=== PATIENT | male | born 1980 | race Caucasian/White ===

== ENCOUNTER 2017-04-12 15:05 | Emergency (ER) | payer BC, OTHER ==
--- NOTE | 2017-04-12 15:21 | Emergency Department Record ---
History of Present Illness - General Chief Complaint: Chest Pain Stated Complaint: CHEST PAIN Time Seen by Provider: 04/12/17 15:18 Source: Patient Mode of Arrival: Wheelchair Limitations: No limitations - History of Present Illness Initial Comments: 36 yo male presents with left sided chest pain. The patient states he has had pain everyday for about 2 years. The pain comes and goes several times a day. He states it occurs when leaning forward and relief if leaning back. Certain position changes also cause the pain like reaching. No shortness of breath. he denies any pain with walking. No sweating or nausea. He called his PCP to discuss the ongoing symptoms and states his appointment was made for July. He is a fuel oil truck driver now and states he wants to get it checked out since over the last 2 years it has not gone away. He wanted to make sure it was not an issue with his job. No calf pain or swelling. His PCP is Dr Espitia in [place] Complaint: Chest pain Onset/Timin -: Year(s) Pain Location: Left chest Pain Radiation: None Severity: Mild Severity scale (1-10): 1 Quality: Tightness Consistency: Intermittent Improves With: Nothing Worsens With: Movement Context: Recent travel [place] Symptoms: Vomiting Treatments Prior to Arrival: None - Related Data Home Medications Medication Instructions Recorded Confirmed Last Taken No Home Med [NO HOME MEDS] 04/12/17 04/12/17 Unknown Allergies Allergy/AdvReac Type Severity Reaction Status Date / Time No Known Drug Allergies Allergy Verified 04/12/17 15:06 Travel Screening - Travel/Exposure Within Last 30 Days Have you traveled within the last 30 days?: Yes Location Detail:: [place] [employer] - Additonal Travel Details Have you been exposed to anyone with a communicable illness?: No - Travel Symptoms Symptom Screening: None Review of Systems Constitutional: Denies: Chills, Fever, Malaise, Weakness Eyes: Denies: Eye discharge, Eye pain, Photophobia, Vision change ENT: Denies: Congestion, Throat pain Respiratory: Denies: Cough, Dyspnea, Hemoptysis, Stridor, Wheezes Cardiovascular: Reports: Chest pain (pain with moving and changing certain positions). Denies: Dyspnea on exertion, Edema, Orthopnea, Palpitations, Syncope Endocrine: Denies: Fatigue Gastrointestinal: Denies: Abdominal pain, Diarrhea, Nausea, Vomiting Genitourinary: Denies: Discharge, Dysuria, Frequency Musculoskeletal: Denies: Back pain, Gout, Joint swelling Skin: Denies: Bruising, Change in color, Rash Neurological: Denies: Headache, Numbness, Weakness Psychiatric: Denies: Anxiety Hematological/Lymphatic: Denies: Blood Clots, Easy bleeding, Easy bruising, Swollen glands Past Medical History - SOCIAL HISTORY Smoking Status: Never smoker - RESPIRATORY Hx Respiratory Disorders: Yes Hx Asthma: Yes - CARDIOVASCULAR Hx Cardio Disorders: No - NEURO Hx Neuro Disorders: No - GI Hx GI Disorders: No - Hx Genitourinary Disorders: No - ENDOCRINE Hx Endocrine Disorders: No - MUSCULOSKELETAL Hx Musculoskeletal Disorders: No - PSYCH Hx Psych Problems: Yes Hx Anxiety: Yes Hx Depression: Yes - HEMATOLOGY/ONCOLOGY Hx Hematology/Oncology Disorders: No Physical Exam - General General Appearance: Alert, Oriented x3, Cooperative, No acute distress Limitations: No limitations - Head Head exam: Atraumatic, Normal inspection - Eye Eye exam: Normal appearance. negative: Conjunctival injection, Scleral icterus - ENT ENT exam: Normal exam, Mucous membranes moist Ear exam: Normal external inspection Nasal Exam: Normal inspection Mouth exam: Normal external inspection Teeth exam: Normal inspection Throat exam: Normal inspection - Neck Neck exam: Normal inspection, Full ROM. negative: Tenderness - Respiratory Respiratory exam: Normal lung sounds bilaterally, Chest wall tenderness (hurts to sit forward and to reach across left to right). negative: Accessory muscle use, Decreased breath sounds, Prolonged expiratory, Rales, Respiratory distress , Rhonchi, Stridor, Wheezes - Cardiovascular Cardiovascular Exam: Regular rate, Normal rhythm, Normal heart sounds Peripheral Pulses: 2+: Radial (R), Radial (L) - GI/Abdominal GI/Abdominal exam: Soft. negative: Tenderness - Rectal Rectal exam: Deferred - exam: Deferred - Extremities Extremities exam: Normal inspection, Full ROM, Normal capillary refill. negative: Calf tenderness, Joint swelling, Pedal edema, Tenderness - Back Back exam: Reports: Normal inspection, Full ROM. Denies: CVA tenderness (R), CVA tenderness (L), Muscle spasm, Rash noted, Tenderness - Neurological Neurological exam: Alert, Normal gait, Oriented X3 - Psychiatric Psychiatric exam: Normal affect, Normal mood - Skin Skin exam: Dry, Intact, Normal color, Warm Course Vital Signs 04/12/17 15:09 Temperature 99.0 F Pulse Rate 80 Respiratory 18 Rate Blood Pressure 131/87 Pulse Ox 98 - Reevaluation(s) Reevaluation #1: The patient was seen for a left sided chest pain that occurs multiple times daily for the last 2 years, it occurs with position changes and reaching. 04/12/17 15:18 EKG NSR rate 78 intervals normal, NS inferior changes, No acute ST changes, No changes from the prior EKG on 12/25/14. 04/12/17 15:19 04/12/17 16:20 No acute changes on the CBC,BMP or Troponin. 04/12/17 16:22 The CXR preliminary was reviewed 04/12/17 16:33 The D-dimer is elevated CTA ordered 04/12/17 17:19 The CTA was reviewed. No central or upper lobe PE in the periphery, non noted in the lower but some limitation of the study due to contrast timing. The patient's symptoms are atypical for CAD or PE. He does not have symptoms with enough suspicion to re-CT. He does not have in any calf pain, tenderness, or swelling. I will refer him for outpatient cardiology for his chronic atypical chest pain Medical Decision Making - Lab Data Result diagrams: 04/12/17 15:30 04/12/17 15:30 Disposition Disposition: Discharge Clinical Impression: Chest wall pain, Atypical chest pain Disposition: Home, Self-Care Condition: (1) Good Instructions: Chest Pain (ED) Additional Instructions: Call your doctor again tomorrow to schedule a recheck prior to July Return if the pain increases, happens without certain movements or positions or any new concerns You are being referred to the cardiology clinic at [facility] for your chest pain Referrals: KELL TURNER D.O. [DOCTOR OF OSTEOPATH] - [facility] Specialty Clinics [Provider Group] Forms: Patient Portal Access Time of Disposition: 17:23 Quality - Quality Measures Quality Measures: N/A - Blood Pressure Screening Does Patient Have Any of the Following: No Blood Pressure Classification: Pre-Hypertensive BP Reading Systolic Measurement: 127 Diastolic Measurement: 81 Screening for High Blood Pressure: < Pre-Hypertensive BP, F/U Documented > [ [id number]] Pre-Hypertensive Follow-up Interventions: Referral to alternative/primary care provider.
[2017-04-12 15:34] LABS: BASO % 0.1 % (0-6); EOS % 2.5 % (0-6); GRAN % 67.5 % (47-80); HEMATOCRIT 45.7 % (42.0-52.0); LYMPH % 19.8 % (16-45); MEAN CELL VOLUME 88.2 fl (81-97); MEAN CORPUSCULAR HEMOGLOBIN 30.9 pg (27-33); MONO % 10.1 % (0-9); PLATELET COUNT 284 K/uL (130-400); RED BLOOD COUNT 5.18 M/uL (4.40-5.70); RED CELL DISTRIBUTION WIDTH 13.4 % (11.5-14.5); WHITE BLOOD COUNT W/O DIFF 7.2 K/uL (4.2-12.2)
[2017-04-12 16:00] LABS: BLOOD UREA NITROGEN 17 mg/dL (6-20); CREATINE PHOSPHOKINASE 99 U/L (39-308); EST GLOMERULAR FILTRATION RATE > 60 mL/min; GLUCOSE,RANDOM 115 mg/dL (74-109)
[2017-04-12 16:04] LABS: CKMB 1.6 ng/mL (<6.73)
--- NOTE | 2017-04-13 11:17 | RADIOLOGY REPORT ---
EXAM: CHEST, TWO VIEWS HISTORY: CHEST PAIN LEFT SIDED MEDIASTINUM FOR TWO YEARS. TECHNIQUE: PA and lateral views of the chest were obtained. Comparison: Two view chest 12/25/14. FINDINGS: The heart size is within normal limits. Small persistent nodule right mid lung laterally has not changed in size appreciably from the previous exam again measuring about 6 mm in size and appearing slightly more dense, likely a calcified granuloma. No definite acute infiltrate is seen. No pleural effusion or pneumothorax evident. Minor linear fibrosis or discoid atelectasis in the lung base anteriorly. IMPRESSION: 1. STABLE SMALL NODULE RIGHT MID LUNG LATERALLY IS LIKELY A CALCIFIED GRANULOMA. 2. MINOR LINEAR FIBROSIS OR DISCOID ATELECTASIS IN THE LUNG BASE ANTERIORLY. JOB NUMBER: [id number] MTDD
--- NOTE | 2017-04-13 20:27 | CT ANGIOGRAM REPORT ---
EXAM: CT ANGIOGRAM CHEST CTA w contrast HISTORY: CHEST PAIN, ELEVATED D-DIMER, POSSIBLE PE. TECHNIQUE: CTA of the chest performed following the intravenous administration of 65 mL of Omnipaque-350 as the IV contrast. Postprocessing on an independent workstation was performed with multiple 3D MIP series obtained. COMPARISON: No prior chest CT with which to compare. Comparison is made with the two-view chest x-ray dated 04/12/17. FINDINGS: No central PE identified. No peripheral PE seen in the upper lungs bilaterally. However, the density of contrast in the peripheral pulmonary arterial tree in the lungs is not sufficiently dense to evaluate for the presence or absence of pulmonary emboli. Heart size is normal. No pleural or pericardial effusion evident. No thoracic aortic aneurysm or dissection is seen. No pneumothorax evident. There is a calcified granuloma approximately 6.7 mm in size in the right mid lung laterally corresponding to the small nodule seen on the chest x-ray today. There is a second, even tinier calcified granuloma in the periphery of the right upper lobe laterally. No acute infiltrate is identified. There is a third small calcified granuloma in the perihilar region on the right as well. IMPRESSION: 1. NO CENTRAL PE IDENTIFIED AND NO PERIPHERAL PE SEEN IN THE UPPER LUNGS. PULMONARY ARTERIAL TREE IS NOT SUFFICIENTLY OPACIFIED WITH CONTRAST IN THE PERIPHERY OF THE LOWER LUNGS TO EVALUATE FOR PERIPHERAL PULMONARY EMBOLI IN THE LOWER LUNGS. 2. A FEW CALCIFIED GRANULOMAS ON THE RIGHT, THE LARGEST ABOUT 6.7 MM IN SIZE CORRESPONDING TO THAT SEEN IN THE RIGHT MID LUNG LATERALLY ON THE CHEST X-RAY. JOB NUMBER: [id number] [facility]
== END 2017-04-12 17:42 | disposition home or self-care (01) ==
LOC: ER 15:05
DX: R07.89 Other chest pain (principal); R11.11 Vomiting without nausea; Z87.891 Personal history of nicotine dependence
CPT/HCPCS: 99284 ×2; 82550; 85025; 82553; 80048; 84484; 85379; 71046; 71275; 93005; 93010; Q9967